=== PATIENT | male | born 1940 | race Caucasian/White ===

== ENCOUNTER 2018-08-05 13:25 | Outpatient (CLI) | payer OTHER ==
[2018-08-05] MEDS ORDERED: IOPAMIDOL-300 100 ML VIAL ONE (13:36)
[2018-08-05] MEDS ORDERED: IOPAMIDOL-300 100 ML VIAL IVP ONE (14:06)
--- NOTE | 2018-08-05 15:49 | CT Report ---
Reason: HEMATURIA,UTI SYMPTOMS Procedure Date: 08/05/2018 Accession Number: [id number] / [id number] Procedure: CT - Abdomen/Pelvis W/WO CPT Code: FULL RESULT: EXAM: CT ABDOMEN AND PELVIS WITHOUT AND WITH CONTRAST EXAM DATE: 08/05/2018 01:49 PM. HISTORY: HEMATURIA,UTI SYMPTOMS. COMPARISON: None. TECHNIQUE: Routine helical CT imaging was performed through the abdomen and pelvis before and after administration of IV contrast: ISOVUE 300 100mL. Enteric contrast: No. Reconstruction: Coronal and sagittal. In accordance with CT protocol optimization, one or more of the following dose reduction techniques were utilized for this exam: automated exposure control, adjustment of mA and/or KV based on patient size, or use of iterative reconstructive technique. FINDINGS: Lung Bases: Emphysematous changes. Bronchiectasis right posterior lung base. Liver: Fatty infiltration. Gallbladder/Bile Ducts: Gallstones. No biliary duct dilatation. Spleen: Normal. Pancreas: Normal. No masses or ductal obstruction. Adrenal Glands: Normal. Kidneys: No stones. Several 4 cm and smaller left renal cyst. No solid renal mass lesions. Normal ureters. Peritoneal Cavity/Bowel: Diverticula off the colon. No free fluid, free air or adenopathy. No masses or acute inflammatory process. Appendix not visualized, but no inflammatory changes adjacent to the cecum. Four large stones within the urinary bladder measuring 2.2 cm and smaller. Moderate symmetric wall thickening of the urinary bladder. No exophytic lesions within the urinary bladder. Prostate measures 4 cm in diameter. Normal rectum. No free fluid. Vasculature: No aneurysms or other significant abnormality. Bones: No significant abnormality. Other: None. IMPRESSION: 1. Chronic lung disease. 2. Cholelithiasis. 3. Several left renal cysts. 4. Colonic diverticulosis. 5. Several large urinary bladder stones. 6. Urinary bladder wall thickening, appearance favors urinary tract infection or chronic outlet obstruction. Bladder neoplasm not excluded. RADIA
== END 2018-08-05 13:26 | disposition home or self-care (01) ==
LOC: DI 13:25
PROVIDERS: ATTEND Internal Medicine
DX: N21.0 Calculus in bladder (principal); R31.9 Hematuria, unspecified; N28.1 Cyst of kidney, acquired; K80.20 Calculus of gallbladder without cholecystitis without obstruction; K57.30 Diverticulosis of large intestine without perforation or abscess without bleeding
CPT/HCPCS: 74178; Q9967

== ENCOUNTER 2022-02-17 19:21 | Outpatient (CLI) | payer MEDICARE, OTHER | END 2022-02-17 19:22 | disposition critical access hospital (66) | LOC: EMS 19:21 | DX: R41.0 Disorientation, unspecified (principal); R26.81 Unsteadiness on feet; V48.5XXA Car driver injured in noncollision transport accident in traffic accident, initial encounter; Y92.410 Unspecified street and highway as the place of occurrence of the external cause; Z72.89 Other problems related to lifestyle | CPT/HCPCS: A0425; A0429 ==

== ENCOUNTER 2022-02-17 19:57 | Emergency (ER) | payer MEDICARE, OTHER ==
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
[2022-02-17 20:19] LABS: BASOPHILS # (AUTO) 0.4 10^3/uL (0.0-0.1); BASOPHILS % (AUTO) 3.1 %; EOSINOPHILS # (AUTO) 0.9 10^3/uL (0.0-0.7); EOSINOPHILS % (AUTO) 7.3 %; HCT - HEMATOCRIT 40.7 % (42.0-52.0); HGB - HEMOGLOBIN 14.9 g/dL (14.0-18.0); LYMPHOCYTES # (AUTO) 2.3 10^3/uL (1.5-3.5); LYMPHOCYTES % (AUTO) 19.3 %; MEAN CORPUSCULAR HEMOGLOBIN 37.3 pg (27.0-31.0); MEAN CORPUSCULAR HGB CONC 36.6 g/dL (32.0-36.0); MEAN CORPUSCULAR VOLUME 101.8 fL (80.0-94.0); MEAN PLATELET VOLUME 9.3 fL (7.4-11.4); MONOCYTES # (AUTO) 1.2 10^3/uL (0.0-1.0); MONOCYTES % (AUTO) 9.7 %; NEUTROPHILS # (AUTO) 6.6 10^3/uL (1.5-6.6); NEUTROPHILS % (AUTO) 55.6 %; PLT - PLATELET COUNT 269 10^3/uL (130-450); RED CELL DISTRIBUTION WIDTH 16.6 % (12.0-15.0); WHITE BLOOD COUNT 11.8 x10^3/uL (4.8-10.8)
[2022-02-17 20:20] LABS: SLIDE REVIEW? Indicated
[2022-02-17 20:28] LABS: INR 1.1 (0.8-1.2)
[2022-02-17 20:32] LABS: ALBUMIN 3.8 g/dL (3.2-5.5); ALBUMIN/GLOBULIN RATIO 1.2 (1.0-2.2); BILIRUBIN,TOTAL 1.2 mg/dL (0.2-1.0); ETOH - ETHANOL 285.3 mg/dL; POTASSIUM 3.7 mmol/L (3.5-5.0); TOTAL PROTEIN 7.1 g/dL (6.7-8.2)
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
[2022-02-17 21:04] LABS: PLATELET ESTIMATE, MANUAL NORMAL (130-450,000) (NORMAL); PLATELET MORPHOLOGY NORMAL APPEARANCE (NORMAL); WBC MORPHOLOGY (MULTIPLE) NORMAL APPEARANCE (NORMAL)
[2022-02-17 21:05] LABS: DIFFERENTIAL COMMENT MANUAL=AUTO DIFF
[2022-02-17] MEDS ORDERED: LORazepam 2 MG/ML VIAL IVP STA (22:07)
[2022-02-17 23:01] VITALS: BP 122/108
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
== END 2022-02-18 09:21 | disposition home or self-care (01) ==
LOC: EDUNIT# → ED 19:57
DX: F10.921 Alcohol use, unspecified with intoxication delirium (principal); Y90.8 Blood alcohol level of 240 mg/100 ml or more; V48.0XXA Car driver injured in noncollision transport accident in nontraffic accident, initial encounter
CPT/HCPCS: 36415; 70450; 72125; 80053; 83690; 85025; 85610; 96374; 99281; 99284; G0480; J2060; 80320

== ENCOUNTER 2023-01-24 08:00 | Outpatient (CLI) | payer MEDICARE ==
[2023-01-24 14:21] LABS: BILIRUBIN,URINE NEGATIVE (NEGATIVE); CLARITY,URINE HAZY (CLEAR); GLUCOSE, URINE (UA) NEGATIVE (NEGATIVE); KETONES,URINE (UA) NEGATIVE (NEGATIVE); LEUKOCYTE ESTERASE, URINE MODERATE (NEGATIVE); NITRITE,URINE POSITIVE (NEGATIVE); OCCULT BLOOD,URINE SMALL (NEGATIVE); PH,URINE 5.5 PH (5.0-7.5); PROTEIN,URINE TRACE mg/dL (NEGATIVE); UROBILINOGEN,URINE 0.2 (NORMAL) E.U./dL (NORMAL)
[2023-01-24 14:37] LABS: BACTERIA,URINE Moderate /HPF (None Seen); RBC,URINE 0-5 /HPF (0-5); SQUAMOUS EPITHELIAL CELL,UR FEW Squamous (<= Few); WBC,URINE >25 /HPF (0-3)
== END 2023-01-24 23:59 | disposition home or self-care (01) ==
LOC: LAB.R 08:00
PROVIDERS: ATTEND Urology
DX: N30.01 Acute cystitis with hematuria (principal)
CPT/HCPCS: 81001; 81003; 87077; 87086; 87181

== ENCOUNTER 2024-02-25 17:52 | Emergency (ER) | payer MEDICARE ==
--- NOTE | 2024-02-25 19:38 | ED Physician Documentation ---
History of Present Illness - Stated complaint Stated Complaint: RT FOOT SWELLING/VOMIT - Chief complaint Chief Complaint: Ext Problem - Additonal information Additional information: 83-year-old with history of dementia, hypertension presents emergency department for atraumatic right foot pain. Patient is here with his daughter who is also his caregiver as well as his who also has dementia. Patient's daughter said that she went to check on her father yesterday and was noticing that he went to bed earlier than normal. Patient is complaining of right foot pain he attempted to elevate it and rested it but the swelling got worse now with no erythema. Unsure if there is been any fevers or chills at home no history of gout no history of cellulitis or type 2 diabetes. Patient denies any trauma to the foot PD PAST MEDICAL HISTORY - Past Medical History Past Medical History: Yes Cardiovascular: Hypertension Respiratory: None Neuro: Dementia Endocrine/Autoimmune: None GI: None : Benign prostate hypertrophy HEENT: None Psych: None Musculoskeletal: None Derm: None - Past Surgical History Past Surgical History: Yes General: Appendectomy - Present Medications Home Medications: Ambulatory Orders Medication Instructions Recorded Confirmed Indomethacin [Indocin] 50 mg PO TID 7 Days #42 cap 02/25/24 Tamsulosin [Flomax] 0.4 mg PO DAILY 02/25/24 02/25/24 cephALEXin [Keflex] 500 mg PO Q6H 5 Days #28 cap 02/25/24 - Allergies Allergies/Adverse Reactions: Allergies Allergy/AdvReac Type Severity Reaction Status Date / Time No Known Drug Allergies Allergy Verified 02/25/24 18:06 - Social History Does the pt smoke?: No Smoking Status: Never smoker Does the pt drink ETOH?: Yes ETOH Use: Beer Does the pt have substance abuse?: No - Immunizations Immunizations are current?: Yes Immunizations: TDAP >10years/unknown - POLST Patient has POLST: No PD ED PE NORMAL - Vitals Vital signs reviewed: Yes - General General: No acute distress, Well developed/nourished - Derm Derm: Other (right ankle erythema) - Extremities Extremities: No deformity, No calf tenderness / cord, Other (right ankle: No bony tenderness with palpation, right ankle erythema with edema. Tenderness with flexion extension, Achilles intact. Positive dorsalis pedis pulses.) Results - Vitals Vitals: Vital Signs - 24 hr 02/25/24 02/25/24 18:06 20:47 Temperature 37.1 C Heart Rate 110 H 110 H Respiratory 20 16 Rate Blood Pressure 110/77 124/91 H O2 Saturation 97 92 Oxygen O2 Source Room air - Labs Labs: Laboratory Tests 02/25/24 02/25/24 02/25/24 19:49 19:49 19:49 WBC 12.7 H RBC 4.30 L Hgb 14.6 Hct 42.8 MCV 99.5 H MCH 34.0 H MCHC 34.1 RDW 17.5 H Plt Count 203 MPV 8.7 Neut # (Auto) 9.7 H Lymph # (Auto) 1.0 L [place] # (Auto) 1.4 H Eos # (Auto) 0.1 Baso # (Auto) 0.2 H Absolute Nucleated RBC 0.00 Nucleated RBC % 0.0 ESR 15 Sodium 131 L Potassium 3.9 Chloride 99 L Carbon Dioxide 25 Anion Gap 7.0 BUN 12 Creatinine 1.1 Estimated GFR (MDRD) 64 L Glucose 111 H Uric Acid 8.6 H Calcium 9.2 Magnesium 1.6 L Total Bilirubin 1.5 H AST 14 ALT 10 Alkaline Phosphatase 49 C-Reactive Protein Total Protein 6.7 Albumin 3.8 Globulin 2.9 Albumin/Globulin Ratio 1.3 Lipase < 10 L 02/25/24 19:49 WBC RBC Hgb Hct MCV MCH MCHC RDW Plt Count MPV Neut # (Auto) Lymph # (Auto) [place] # (Auto) Eos # (Auto) Baso # (Auto) Absolute Nucleated RBC Nucleated RBC % ESR Sodium Potassium Chloride Carbon Dioxide Anion Gap BUN Creatinine Estimated GFR (MDRD) Glucose Uric Acid Calcium Magnesium Total Bilirubin AST ALT Alkaline Phosphatase C-Reactive Protein 9.0 H Total Protein Albumin Globulin Albumin/Globulin Ratio Lipase - Rads (name of study) Right lower extremity venous duplex Relevant Findings:: Final report received, EMP independent interpretation of test, Other (No DVT) PD Medical Decision Making - ED course ED course: 83-year-old male presents emergency department for atraumatic right lower extremity pain. Differentials include but are not limited to strain/sprain, DVT, Gout, Cellulitis. Given that patient does have dementia I did consider that there could have been trauma unknown or patient does not remember. I did consider x-rays of the right foot but with [place] rules patient does not meet criteria for an x-ray. Labs are complete he does have mild leukocytosis, 12.7 neutrophils elevated at 9.7. Mild hyponatremia, 131. Uric acid also slightly elevated Making me more suspicious that this could be a gout flare. CRP 9.0. Although I do believe that this is most likely a gout flare and is hard to say this is there is also a strong possibility that this could be cellulitis or even a combination of gout and cellulitis. We went ahead and started patient on Keflex for cellulitis as well as indomethacin for gout flare. Prescription sent to patient's preferred pharmacy he was given very strict return precautions as well as his daughter who is his caregiver his daughter will manage his medications at home they will follow-up with primary care provider outpatient and understand when to report back to the emergency department. Departure - Departure Disposition: Home, Self Care Clinical Impression: Cellulitis of right ankle Gout of right ankle Qualifiers: Gout etiology: unspecified cause Chronicity: acute Qualified Code(s): M10.9 - Gout, unspecified Instructions: Cellulitis Dc, Gout Eat Prevent, ED Diet Gout Prescriptions: Indomethacin [Indocin] 50 mg PO TID 7 Days #42 cap cephALEXin [Keflex] 500 mg PO Q6H 5 Days #28 cap Comments: Thank you for trusting us with your care we are going to treat your right ankle swelling and pain as if it is gout and cellulitis. We have started you on a medication called Keflex you will take this 4 times a day for the next 5 days you took the first dose tonight so you will take the next dose first thing in the morning. In regards to your gout I have included information in this packet of foods to avoid or to take to help with gout management. You will take a medication called indomethacin 3 times a day for this gout flare for the next 7 days. Is important that you follow-up with your primary care provider for follow-up in regards to this ER visit and reevaluation to make sure that you are getting better instead of worse. Please come back to the emergency department for any fevers chills worsening infection worsening swelling and pain Forms: PCP List Discharge Date/Time: 02/25/24 20:53
[2024-02-25 19:55] LABS: BASOPHILS # (AUTO) 0.2 10^3/uL (0.0-0.1); BASOPHILS % (AUTO) 1.4 %; EOSINOPHILS # (AUTO) 0.1 10^3/uL (0.0-0.7); EOSINOPHILS % (AUTO) 0.9 %; HCT - HEMATOCRIT 42.8 % (42.0-52.0); HGB - HEMOGLOBIN 14.6 g/dL (14.0-18.0); MEAN CORPUSCULAR HGB CONC 34.1 g/dL (32.0-36.0); MEAN CORPUSCULAR VOLUME 99.5 fL (80.0-94.0); MEAN PLATELET VOLUME 8.7 fL (7.4-11.4); MONOCYTES # (AUTO) 1.4 10^3/uL (0.0-1.0); MONOCYTES % (AUTO) 10.7 %; NEUTROPHILS # (AUTO) 9.7 10^3/uL (1.5-6.6); NEUTROPHILS % (AUTO) 75.7 %; PLT - PLATELET COUNT 203 10^3/uL (130-450); RED CELL DISTRIBUTION WIDTH 17.5 % (12.0-15.0); WHITE BLOOD COUNT 12.7 x10^3/uL (4.8-10.8)
[2024-02-25 20:02] LABS: MAGNESIUM 1.6 mg/dL (1.7-2.3)
[2024-02-25 20:09] LABS: ALBUMIN 3.8 g/dL (3.2-5.5); ALBUMIN/GLOBULIN RATIO 1.3 (1.0-2.2); ALKALINE PHOSPHATASE 49 IU/L (42-121); ALT ALANINE AMINOTRANSFERASE 10 IU/L (10-60); AST ASPARTATE AMINOTRANSFERASE 14 IU/L (10-42); BILIRUBIN,TOTAL 1.5 mg/dL (0.2-1.0); BUN - BLOOD UREA NITROGEN 12 mg/dL (6-20); CALCIUM 9.2 mg/dL (8.5-10.3); CARBON DIOXIDE - CO2 25 mmol/L (21-32); CHLORIDE 99 mmol/L (101-111); CREATININE 1.1 mg/dL (0.6-1.3); GFR - MDRD 64 (>89); GLUCOSE 111 mg/dL (74-104); POTASSIUM 3.9 mmol/L (3.5-4.5); SODIUM 131 mmol/L (135-145); TOTAL PROTEIN 6.7 g/dL (6.4-8.9); URIC ACID 8.6 mg/dL (4.4-7.6)
[2024-02-25 20:17] LABS: LIPASE < 10 U/L (11-82)
--- NOTE | 2024-02-25 20:17 | Ultrasound Report ---
PROCEDURE: Duplex Ext Veins Right INDICATIONS: RLE pain and swelling, r/o DVT TECHNIQUE: Real-time imaging, as well as color and pulse Doppler interrogation, were performed of the lower extr emity deep veins from the inguinal ligament to the popliteal fossa. Attempted visualization of the ca lf veins was performed. COMPARISON: None. FINDINGS: The deep veins are normally compressible, and free of intraluminal thrombus. Color and pu lse Doppler demonstrate normal phasic intraluminal flow. There is normal augmentation response to di stal compression maneuver. IMPRESSION: No deep venous thrombosis of the visualized lower extremity. Reviewed by: Rory Subramanian MD on 02/25/2024 8:16 PM PDT Approved by: Rory Subramanian MD on 02/25/2024 8:16 PM PDT Station ID: [id number]
[2024-02-25] MEDS ORDERED: INDOMETHACIN 25 MG CAPSULE PO STA (20:22)
[2024-02-25] MEDS: cephALEXin 250 MG CAPSULE PO STA (20:44)
[2024-02-25] MEDS: ACETAMINOPHEN 325 MG TABLET PO STA (20:44)
[2024-02-25] MEDS: oxyCODONE 5 MG TABLET PO STA (20:49)
[2024-02-25 20:53] VITALS: BP 124/91; O2SAT 92
== END 2024-02-25 20:53 | disposition home or self-care (01) ==
LOC: ED 17:52
DX: L03.115 Cellulitis of right lower limb (principal); M10.9 Gout, unspecified; D72.829 Elevated white blood cell count, unspecified; E87.1 Hypo-osmolality and hyponatremia; F03.90 Unspecified dementia, unspecified severity, without behavioral disturbance, psychotic disturbance, mood disturbance, and anxiety; I10 Essential (primary) hypertension; Z79.899 Other long term (current) drug therapy
CPT/HCPCS: 36415; 80053; 83690; 83735; 84550; 85025; 85651; 86140; 93971; 99284; A9270

== ENCOUNTER 2025-07-20 20:58 | Observation (INO) ==
--- OUTSIDE RECORDS SUMMARY | 2025-07-20 21:20 | EXTERNAL MEDICAL SUMMARY RPT | Continuity of Care Document ---
Author Organization [facility] Address [address] [place] [id number] Phone Problems date description facility 2025-04-27 15:23 Pain in right foot [facility] 2025-04-27 15:23 Other specified soft tissue dis [facility] 2025-05-05 07:02 Hereditary hemochromatosis [facility] 2025-05-05 07:02 Unspecified dementia , moderate, without behavioral disturbance, psychotic disturbance, mood disturbance, and anxiety [facility] 2025-05-05 07:02 Alcohol use, unspecified, uncom plicated [facility] 2025-05-05 07:02 Chronic gout, unspecified, with out tophus (tophi) [facility] 2025-05-05 07:02 Benign prostatic hyp erplasia with lower urinary tract symptoms [facility] 2025-05-05 07:02 [facility] 2025-05-05 15:10 Hereditary hemochromatosis [facility] 2025-05-05 15:10 Unspecified dementia , moderate, without behavioral disturbance, psychotic disturbance, mood disturbance, and anxiety [facility] 2025-05-05 15:10 Alcohol use, unspecified, uncom plicated [facility] 2025-05-05 15:10 Chronic gout, unspecified, with out tophus (tophi) [facility] 2025-05-05 15:10 Pain in right foot [facility] 2025-05-05 15:10 Other specified soft tissue dis orders [facility] 2025-05-05 15:10 Benign prostatic hyp erplasia with lower urinary tract symptoms [facility] 2025-05-05 15:10 Encounter for palliative care [facility] 2025-05-18 08:58 [facility] 2025-05-20 11:39 Pain in right foot [facility] 2025-05-20 11:39 Other specified soft tissue dis orders [facility] 2025-05-20 11:39 Encounter for palliative care [facility] Social History date description facility
[2025-07-20] MEDS: SODIUM CHLORIDE 0.9% 500 ML IV STA (21:39)
[2025-07-20] MEDS: PANTOPRAZOLE 40 MG VIAL IVP STA (21:39)
[2025-07-20 21:45] LABS: HCT - HEMATOCRIT 39.1 % (42.0-52.0); HGB - HEMOGLOBIN 13.4 g/dL (14.0-18.0); MEAN PLATELET VOLUME 10.0 fL (7.4-11.4); NRBC ABSOLUTE COUNT (AUTO) 0.02 x10^3/uL; NUCLEATED RED BLOOD CELLS AUTO 0.1 /100WBC; PLT - PLATELET COUNT 237 10^3/uL (130-450); RED CELL DISTRIBUTION WIDTH 18.0 % (12.0-15.0)
[2025-07-20 22:01] LABS: INR 1.2 (0.8-1.2); PT - PROTHROMBIN TIME 13.4 secs (9.9-12.6)
[2025-07-20 22:33] LABS: ALT ALANINE AMINOTRANSFERASE 15 IU/L (10-60); AST ASPARTATE AMINOTRANSFERASE 14 IU/L (10-42); BUN - BLOOD UREA NITROGEN 60 mg/dL (6-20); CARBON DIOXIDE - CO2 22 mmol/L (21-32); CREATININE 1.3 mg/dL (0.6-1.3); ETOH - ETHANOL < 10.0 mg/dL; GFR - MDRD 53 (>89)
--- NOTE | 2025-07-20 23:06 | CT Report ---
PROCEDURE: CT Abdomen/Pelvis W INDICATIONS: n/v/GIB CONTRAST: omni 300, 100ml TECHNIQUE: After the administration of intravenous contrast, a CT scan of the abdomen and pelvis was performed. Images were recorded and evaluated at appropriate window settings. Reformats: coronal and sagittal. For radiation dose reduction, the following was used: automated exposure control, adjustment of mA and/or kV according to patient size. COMPARISON: None. FINDINGS: Image quality: Diagnostic. Lower chest: Surgical bronchiectasis and linear scarring in the lung bases, likely sequela of prior infection/inflammation. Liver: Hepatic steatosis. No focal mass. Gallbladder: Layering stones/sludge. No wall thickening. No pericholecystic edema. Biliary tree: No intrahepatic or extrahepatic dilation, accounting for age. Spleen: No splenomegaly. Pancreas: No pancreatic ductal dilation. Adrenals: No adrenal nodule. Kidneys and ureters: No hydronephrosis. No renal cystic lesion which requires follow up. No solid mass. Stomach, bowel and peritoneum: No gastric or small bowel dilation. No abnormal wall thickening. No pathologic free fluid. Diverticulosis without evidence of diverticulitis. Nonvisualized appendix. No pericecal inflammation. Lymph nodes: No central or retroperitoneal adenopathy. Vessels: No infrarenal aortic aneurysm. Patent portal vein. PELVIS Reproductive organs: Unremarkable. Bladder: Circumferential bladder wall thickening which may be secondary to underdistention. Pelvic lymph nodes: No pelvic adenopathy by size criteria. Bones: No aggressive osseous abnormality. Other: No significant ventral or inguinal hernia. IMPRESSION: 1. Circumferential bladder wall thickening which may be secondary to underdistention. Correlate with symptoms and/or urinalysis to exclude cystitis. 2. Diverticulosis without evidence of diverticulitis. 3. Cholelithiasis without acute cholecystitis. Reviewed by: Trung Darnell MD on 07/20/2025 11:03 PM PDT Approved by: Trung Darnell MD on 07/20/2025 11:03 PM PDT Station ID: [id number]
--- NOTE | 2025-07-21 00:18 | ED Physician Documentation ---
PD HPI GI BLEED Stated complaint Stated Complaint: N/V/BLOODY STOOL Chief complaint Chief Complaint: Abd Pain Additional information Additional information: HPI from caregiver. Patient also contributes to HPI but answers are of uncertain reliability due to dementia. Caregiver says that patient was in his usual state of health when she left yesterday but upon checking in with patient this afternoon, she noted patient was vomiting "dark black" material. She then noted bloody vomitus on the floor with clots which patient indicated had happened at some point in the overnight period. This evening, the patient began to have frequent dark black tarry stool associate with increasing disorientation off of his baseline mild dementia as well as generalized weakness. Caregiver says that patient typically ambulates without needing any assistance but over the course of the evening, he has become increasingly weak to the point that he is unable to ambulate. Patient does not take any blood-thinning medication. No known history of GI bleeding. He does not take NSAIDs on a regular basis. He does use alcohol daily. The patient denies having any pain, specifically denies chest pain, abdominal pain. Meds/Allgy Home Medications Ambulatory Orders Medication Instructions Recorded Confirmed tamsulosin 0.4 mg capsule 0.4 mg PO DAILY 02/25/24 ibuprofen 200 mg tablet 200 mg PO Q6H PRN 02/06/25 0 02/06/25 Allergies Allergies Allergy/AdvReac Type Severity Reaction Status Date / Time No Known Drug Allergies Allergy Verified 07/20/25 21:14 PFSH Active Problems All Active Problems (Updated 07/21/25 @ 01:41 by Wang Hernandez MD) Acute upper GI bleed (Acute) Chronic coughing (Acute) Advance care planning (Acute) Dementia (Acute) Alcohol use disorder (Acute) Cognitive decline (Acute) Elevated PSA (Acute) BPH loc w urin obs/LUTS (Acute) Gout (Acute) Hereditary hemochromatosis (Acute) Medical History Medical History (Updated 07/21/25 @ 01:41 by Wang Hernandez MD) Hypertension Family History Family History Mother Cancer Social History Social History Smoking Status: Unknown if ever smoked Do you dip or chew tobacco?: No Do you vape?: No Living arrangement: At home Marital Status: Living Condition: With spouse/s.o. Support Person: Yes Physical Activity: Walking Level: Assisted Do you feel safe in your home environment?: Yes History of physical, verbal, emotional, or financial abuse?: No ETOH Use: Wine and Beer Frequency: Daily POLST Patient has POLST: Yes Exam Exam Vital Signs: Vital Signs x48h Pulse Resp BP Pulse Ox 07/21/25 01:00 90 18 100/60 99 07/20/25 23:00 88 16 99/75 97 07/20/25 21:45 110 H 18 90/60 99 07/20/25 21:30 112 H 16 112/71 98 Constitutional normal general appearance, no apparent distress and alert Respiratory breath sounds equal bilaterally, clear to auscultation bilaterally, no wheezes and no rales Cardiovascular normal heart rate noted, regular rhythm noted and no edema Gastrointestinal abdomen soft to palpation, nontender to palpation, nondistended and normoactive bowel sounds Neurology GCS 15 Psychiatry mental status grossly normal, cooperative and affect normal Skin skin color normal Results Vitals Vitals: Vital Signs - 24 hr 07/20/25 21:01 07/20/25 21:30 07/20/25 21:45 Temperature 36.4 C L Temperature Source Skin Pulse Rate 118 H 112 H 110 H Respiratory Rate 18 16 18 Blood Pressure 91/68 112/71 90/60 O2 Saturation 99 98 99 O2 Source Room air Room air Room air Pain Intensity 6 07/20/25 23:00 07/21/25 01:00 Temperature Temperature Source Pulse Rate 88 90 Respiratory Rate 16 18 Blood Pressure 99/75 100/60 O2 Saturation 97 99 O2 Source Room air Room air Pain Intensity Oxygen O2 Source Room air Labs Labs: Microbiology 07/20/25 21:55 Occult Blood - Final Stool Laboratory Tests 07/20/25 07/21/25 21:41 00:50 WBC 15.2 H RBC 3.72 L Hgb 13.4 L 12.6 L Hct 39.1 L 37.7 L MCV 105.1 H MCH 36.0 H MCHC 34.3 RDW 18.0 H Plt Count 237 MPV 10.0 Neut # (Auto) 12.7 H Lymph # (Auto) 1.1 L [place] # (Auto) 0.9 Eos # (Auto) 0.0 Baso # (Auto) 0.1 Absolute Nucleated RBC 0.02 Nucleated RBC % 0.1 PT 13.4 H INR 1.2 APTT 24.0 L Sodium 137 Potassium 3.6 Chloride 102 Carbon Dioxide 22 Anion Gap 13.0 BUN 60 H Creatinine 1.3 Estimated GFR (MDRD) 53 L Glucose 151 H Calcium 9.1 Total Bilirubin 1.9 H AST 14 ALT 15 Alkaline Phosphatase 45 Total Protein 6.6 Albumin 4.0 Globulin 2.6 Albumin/Globulin Ratio 1.5 Lipase < 10 L Ethyl Alcohol < 10.0 PD Medical Decision Making ED course Complexity details: reviewed results, re-evaluated patient, considered differential and d/w patient ED course: Mild leukocytosis on CBC (WBC 15.2). Hemoglobin is slightly below normal range (13.4), and a 3-hour repeat hemoglobin is 12.6. However, patient had black tarry stool output late in ED stay concerning for ongoing UGI bleed. Also notable is BUN of 60 with creatinine 1.3. Normal LFTs and lipase except for 1.9 bilirubin. Stool sent to lab and result is guaiac positive. CT A/P with IV contrast demonstrates diverticulosis, cholelithiasis. I discussed this case with [facility] who accepts patient to [facility] hospitalist service for observation and possible endoscopy. Patient was given 500 cc normal saline IV during ED stay along with 40 mg IV pantoprazole. Discharge Plan Discharge Patient Disposition: [facility] DC/Xfer Condition: Stable Clinical Impression: Acute upper GI bleed Interventions: ED Admission Assessment Last Done: 07/21/25 02:44 Vitals documented within 30 minutes of discharge?: Yes
[2025-07-21 00:53] LABS: HCT - HEMATOCRIT 37.7 % (42.0-52.0); HGB - HEMOGLOBIN 12.6 g/dL (14.0-18.0)
--- NOTE | 2025-07-21 02:02 | HISTORY & PHYSICAL EXAMINATION ---
Chief Complaint Chief Complaint Chief Complaint: Bloody stool and bloody emesis History of Present Illness History Obtained From History obtained from: My discussion with ER MD who spoke with Patient's caregiver María Exam Limitations: Cognitive decline and mild dementia, forgetfulness, telemedicine visit History of Present Illness HPI Comment/Other: patient is 84 y/o M with prior hx of gout and dementia (mild) described by Caregiver María (with whom Dr Hernandez spoke earlier) patient has ongoing episode of dark coffee ground emesis and melanotic stools , black in color , 3-4 times in last 2 days, patient denies being on any blood thinner as per behavioral health care coordinator's history, patient has profound weakness along with intermittent melanotic stool and in ER patient had 100 ml of melanotic stool. Although patient has stable hemoglobin. I was told by ER MD surgery consultants can do EGD and colonoscopy if needed at this facility hospitalist team is asked to admit patient. patient is very poor historian due to dementia Meds/Allgy Home Medications Ambulatory Orders Medication Instructions Recorded Confirmed tamsulosin 0.4 mg capsule 0.4 mg PO DAILY 02/25/24 ibuprofen 200 mg tablet 200 mg PO Q6H PRN 02/06/25 0 02/06/25 Allergies Allergies Allergy/AdvReac Type Severity Reaction Status Date / Time No Known Drug Allergies Allergy Verified 07/20/25 21:14 PFSH Active Problems All Active Problems (Updated 07/21/25 @ 01:41 by Wang Hernandez MD) Acute upper GI bleed (Acute) Chronic coughing (Acute) Advance care planning (Acute) Dementia (Acute) Alcohol use disorder (Acute) Cognitive decline (Acute) Elevated PSA (Acute) BPH loc w urin obs/LUTS (Acute) Gout (Acute) Hereditary hemochromatosis (Acute) Medical History Medical History (Updated 07/21/25 @ 01:41 by Wang Hernandez MD) Hypertension Family History Family History Mother Cancer Social History Social History Do you vape?: No Living arrangement: At home Marital Status: Living Condition: With spouse/s.o. Support Person: Yes Physical Activity: Walking Level: Assisted Do you feel safe in your home environment?: Yes History of physical, verbal, emotional, or financial abuse?: No ETOH Use: Wine and Beer Frequency: Daily POLST Patient has POLST: Yes Review of Systems Status of ROS: unobtainable due to medical condition Exam Exam Vital Signs: Vital Signs x48h Temp Pulse Resp BP Pulse Ox 07/20/25 23:00 88 16 99/75 97 07/20/25 21:45 110 H 18 90/60 99 07/20/25 21:30 112 H 16 112/71 98 07/20/25 21:01 36.4 C L 118 H 18 91/68 99 Limited inspection on telemedicine visit, exam is limited by telemedicine nature of patient care encounter, patient appears non focal , moves all extremities, and forgetful, RN Lilian is at bedside, for exam defer to ER MD exam Conclusion/Plan Problem List (1) Acute upper GI bleed: (2) Dementia: Qualifiers: Dementia type: unspecified type Dementia severity: moderate Dementia behavioral or psychological symptom: without behavioral, psychotic, or mood disturbance or anxiety Qualified Code(s): F03.B0 - Unspecified dementia, moderate, without behavioral disturbance, psychotic disturbance, mood disturbance, and anxiety Plan - Admit to hospital - Rounding team to discuss with general surgery Dr Lam in AM for possible EGD evaluation - Start protonix infusion - Keep patient NPO - Continue IVF - Monitor Serial CBC Q6H - avoid any blood thinners - Patient drinks 1/2 glass of whiskey daily, monitor for withdrawal - If need any clinical info, rounding team to discuss with caregiver María. - no one at bedside, patient appears confused, full code status - Monitor for delirium Lab Results 07/21/25 00:50 07/20/25 21:41
[2025-07-21] MEDS ORDERED: ONDANSETRON 4 MG/2 ML VIAL IVP PRN (02:39)
[2025-07-21] MEDS ORDERED: SODIUM CHLORIDE FLUSH 0.9% 10 ML SYRINGE IVP PRN (02:39)
[2025-07-21 03:01] LABS: HCT - HEMATOCRIT 36.7 % (42.0-52.0); HGB - HEMOGLOBIN 12.5 g/dL (14.0-18.0); MEAN PLATELET VOLUME 9.6 fL (7.4-11.4); NRBC ABSOLUTE COUNT (AUTO) 0.00 x10^3/uL; NUCLEATED RED BLOOD CELLS AUTO 0.0 /100WBC; PLT - PLATELET COUNT 201 10^3/uL (130-450); RED CELL DISTRIBUTION WIDTH 18.3 % (12.0-15.0)
[2025-07-21 03:12] LABS: INR 1.2 (0.8-1.2); PT - PROTHROMBIN TIME 13.2 secs (9.9-12.6)
[2025-07-21] MEDS: SODIUM CHLORIDE 0.9% 1,000 ML IV SCH (03:26)
[2025-07-21] MEDS: PANTOPRAZOLE 80 MG in SODIUM CHLORIDE 0.9% 100ML 100 ML IV SCH (03:27)
--- NOTE | 2025-07-21 06:12 | CONSULTATION NOTE ---
Referring Provider Name of Referring Provider:: Dr. Fox Consult Date: 07/21/25 Chief Complaint Chief Complaint Chief Complaint: Coffe ground emesis, melena History of Present Illness History Obtained From History obtained from: Chart - patient has dementia and is poor historian History of Present Illness HPI Comment/Other: 84 year old male found at home by Palliative caregiver with coffee ground emesis, melena, and weakness. He was brought to the ED and admitted to the medical service for evaluation and management. General Surgery was consulted for possible EGD and or CS. PFSH Active Problems All Active Problems Acute upper GI bleed (Acute) Chronic coughing (Acute) Advance care planning (Acute) Dementia (Acute) Alcohol use disorder (Acute) Cognitive decline (Acute) Elevated PSA (Acute) BPH loc w urin obs/LUTS (Acute) Gout (Acute) Hereditary hemochromatosis (Acute) Medical History Medical History Hypertension Family History Family History Mother Cancer Social History Social History Smoking Status: Unknown if ever smoked Do you dip or chew tobacco?: No Do you vape?: No Living arrangement: At home Marital Status: Living Condition: With spouse/s.o. Support Person: Yes Physical Activity: Walking Level: Assisted Do you feel safe in your home environment?: Yes History of physical, verbal, emotional, or financial abuse?: No ETOH Use: Wine and Beer Frequency: Daily POLST Patient has POLST: Yes Meds/Allgy Home Medications Ambulatory Orders Medication Instructions Recorded Confirmed tamsulosin 0.4 mg capsule 0.4 mg PO DAILY 02/25/24 ibuprofen 200 mg tablet 200 mg PO Q6H PRN 02/06/25 0 02/06/25 Allergies Allergies Allergy/AdvReac Type Severity Reaction Status Date / Time No Known Drug Allergies Allergy Verified 07/20/25 21:14 Results Lab Results 07/21/25 02:55 07/20/25 21:41 Other Lab Results: Lab Results x24hrs 10/06/0707/21/25 07/20/25 Range/Units 02:55 00:50 21:41 WBC 14.5 H 15.2 H (4.8-10.8) x10^3/uL RBC 3.46 L 3.72 L (4.70-6.10) 10^6/uL Hgb 12.5 L 12.6 L 13.4 L (14.0-18.0) g/dL Hct 36.7 L 37.7 L 39.1 L (42.0-52.0) % MCV 106.1 H 105.1 H (80.0-94.0) fL MCH 36.1 H 36.0 H (27.0-31.0) pg MCHC 34.1 34.3 (32.0-36.0) g/dL RDW 18.3 H 18.0 H (12.0-15.0) % Plt Count 201 237 (130-450) 10^3/uL MPV 9.6 10.0 (7.4-11.4) fL Neut # (Auto) 11.5 H 12.7 H (1.5-6.6) 10^3/uL Lymph # (Auto) 1.6 1.1 L (1.5-3.5) 10^3/uL [place] # (Auto) 1.0 0.9 (0.0-1.0) 10^3/uL Eos # (Auto) 0.0 0.0 (0.0-0.7) 10^3/uL Baso # (Auto) 0.1 0.1 (0.0-0.1) 10^3/uL Absolute Nucleated RBC 0.00 0.02 x10^3/uL Nucleated RBC % 0.0 0.1 /100WBC PT 13.2 H 13.4 H (9.9-12.6) secs INR 1.2 1.2 (0.8-1.2) APTT 24.4 L 24.0 L (24.9-33.3) secs Sodium 137 (135-145) mmol/L Potassium 3.6 (3.5-4.5) mmol/L Chloride 102 (101-111) mmol/L Carbon Dioxide 22 (21-32) mmol/L Anion Gap 13.0 (6-13) BUN 60 H (6-20) mg/dL Creatinine 1.3 (0.6-1.3) mg/dL Estimated GFR (MDRD) 53 L (>89) Glucose 151 H (74-104) mg/dL Calcium 9.1 (8.5-10.3) mg/dL Total Bilirubin 1.9 H (0.2-1.0) mg/dL AST 14 (10-42) IU/L ALT 15 (10-60) IU/L Alkaline Phosphatase 45 (42-121) IU/L Total Protein 6.6 (6.4-8.9) g/dL Albumin 4.0 (3.2-5.5) g/dL Globulin 2.6 (2.1-4.2) g/dL Albumin/Globulin Ratio 1.5 (1.0-2.2) Lipase < 10 L (11-82) U/L Ethyl Alcohol < 10.0 mg/dL Review of Systems Coffee ground emesis; melena; No abdominal pain Exam Exam Vital Signs: Vital Signs x48h Temp Pulse Pulse Resp BP BP Pulse Ox 07/21/25 02:42 36.6 C 98 18 118/80 98 07/21/25 01:00 90 18 100/60 99 07/20/25 23:00 88 16 99/75 97 Constitutional no apparent distress HENMT normocephalic, hearing grossly normal bilaterally and oral mucous membranes normal Eyes PERRL and conjunctivae normal Neck/C-Spine trachea midline Respiratory breath sounds equal bilaterally Cardiovascular normal heart rate noted and regular rhythm noted Gastrointestinal abdomen normal to inspection, abdomen soft to palpation and nontender to palpation Extremities normal to inspection Psychiatry cooperative Disoriented to place Skin no ecchymosis noted, no jaundice and no mottling Conclusion/Plan Problem List (1) Acute upper GI bleed: Plan: The patient is hemodynamically stable and has not required blood transfusion. He is on IV PPI. His Hgb has decreased to 12.5 from a usual level of 14. (2) Dementia: Qualifiers: Dementia behavioral or psychological symptom: without behavioral, psychotic, or mood disturbance or anxiety Dementia severity: moderate Dementia type: unspecified type Qualified Code(s): F03.B0 - Unspecified dementia, moderate, without behavioral disturbance, psychotic disturbance, mood disturbance, and anxiety Plan I will discuss with the medical hospitalist team. I am not certain how aggressive they want to be given his palliative care situation and current hemodynamic stability. If we are to offer urgent diagnostic endoscopy, I would recommend we start with an EGD. If no bleeding source is identified, we can then decide whether to pursue colonoscopy. Lab Results 07/21/25 02:55 07/20/25 21:41
[2025-07-21] MEDS: PANTOPRAZOLE 40 MG VIAL IVP SCH (08:41)
[2025-07-21 08:42] LABS: ALT ALANINE AMINOTRANSFERASE 11.0 IU/L (10-60); AST ASPARTATE AMINOTRANSFERASE 10.0 IU/L (10-42); BUN - BLOOD UREA NITROGEN 54.0 mg/dL (6-20); CARBON DIOXIDE - CO2 28.0 mmol/L (21-32); CREATININE 1.2 mg/dL (0.6-1.3); GFR - MDRD 58.0 (>89)
[2025-07-21] MEDS: SODIUM CHLORIDE FLUSH 0.9% 10 ML SYRINGE IVP SCH (08:42)
--- NOTE | 2025-07-21 10:04 | PROVIDER PROGRESS NOTE ---
Progress Note Progress Note Progress Note: Consent: EGD The Medical Hospitalist Service would like an EGD performed on this patient today. He remains hemodynamically stable. His legal guardian is his son, Vladimir who makes all of his health care decisions. Vladiimr has been counseled for the procedure (EGD) for his father, it's indications, risks, benefits and expected outcome as well as alternative therapies. We specifically discussed risks associated with anesthesia and insertion of the endoscope into the UGI tract which includes bleeding which may require surgical intervention. Vladimir understands, agrees, and consents to the proposed operative strategy and requests that we proceed with the procedure as outlined in our discussion. I will call Vladimir after the procedure. If we do not find an UGI source for the GI bleed loss, we will discuss possible colonoscopy. This phone consent was witnessed by one of our nursing staff. Vladimir [phone] Anthony Lobato MD, [facility] General Surgery Service
--- NOTE | 2025-07-21 11:09 | PROVIDER PROGRESS NOTE ---
Subjective Prog Note Date Prog Note Date: 07/21/25 Prog Note Time: 11:09 Subjective Pt reports feeling: No change Subjective: Calvin Leon is a 84-year-old male with a past medical history of ETOH use, dementia, hemochromatosis and gout who presents with hematemesis and melena concerning for upper GIB with plans for EGD 07/21. Today, patient is alert and engages in assessment/conversation. He states he had a few days of black-colored emesis with melena, he recalls last before admission 07/20. Currently denies abdominal pain, nausea, and dizziness at rest. He denies dyspnea, chest pain, palpitations. Current Medications Current Medications Current Medications: Current Medications Generic Name Dose Route Start Last Admin Trade Name Freq PRN Reason Stop Dose Admin Sodium Chloride 1,000 mls @ 100 mls/hr 07/21/25 02:39 07/21/25 03:26 Normal Saline 0.9% IV 100 mls/hr .Q10H LEOBARDO Administration Ondansetron HCl 4 mg 07/21/25 02:39 Ondansetron 4 Mg/2 Ml Vial IVP Q6HR PRN Nausea / Vomiting Pantoprazole Sodium 40 mg 07/21/25 09:00 07/21/25 08:41 Pantoprazole 40 Mg Vial IVP 40 mg BID LEOBARDO Administration Sodium Chloride 10 ml 07/21/25 02:39 Sodium Chloride Flush 0.9% 10 Ml Syringe IVP PRN PRN NEEDED PER PROVIDER ORDERS Sodium Chloride 10 ml 07/21/25 09:00 07/21/25 08:42 Sodium Chloride Flush 0.9% 10 Ml Syringe IVP 10 ml 0100,0900,1700 LEOBARDO Administration Objective Vital Signs/Intake & Output Reviewed Vital Signs: Yes Vital Signs: Vital Signs x48h Temp Pulse Resp BP Pulse Ox 07/21/25 09:00 36.7 C 78 18 100/70 97 Intake & Output: Intake & Output 07/18/25 07/19/25 07/20/25 07/21/25 23:59 23:59 23:59 23:59 Intake Total 500 / 500 Output Total 100 / 100 Balance 500 / 500 -100 / -100 Weight (kg) 72.575 kg 88 kg Objective General Appearance: positive No acute distress and Alert Eyes Bilateral: positive PERRL, EOMI, Conjunctivae nml and No scleral icterus; negative Normal inspection (Crusty yellow drainage bilateral lower eyelids) ENT: positive Dry mucous membranes and Other (Dental caries) Neck: positive Nml inspection, No JVD and Trachea midline Respiratory: positive No respiratory distress and Breath sounds nml; negative Wheezes, Rales or Rhonchi Cardiovascular: positive Regular rate & rhythm, No murmur and No gallop Peripheral Pulses: 1+: Dorsalis pedis (R) and 1+: Dorsalis pedis (L) and 2+: Radial (R), 2+: Radial (L), 2+: Posterior tibialis (R) and 2+: Posterior tibialis (L) Abdomen: positive Non-tender, Nml bowel sounds and No distention Skin: positive No rash, Warm, Dry and Other (Solar lentigines generalized BUE/trunk) Extremities: positive Non-tender, Full ROM and Pedal edema (2+ in ankles) Neurologic/Psychiatric: positive Motor nml, Sensation nml, Mood/affect nml, Disoriented to time and Other (Initially states he is admitted for UTI, however recalls hematemesis and melena); negative Slurred/abnml speech Lab Results 07/21/25 14:10 07/21/25 08:14 Other Labs: Lab Results x24hrs 07/21/25 07/21/25 07/21/25 Range/Units 08:14 02:55 00:50 WBC 14.5 H (4.8-10.8) x10^3/uL RBC 3.46 L (4.70-6.10) 10^6/uL Hgb 12.5 L 12.6 L (14.0-18.0) g/dL Hct 36.7 L 37.7 L (42.0-52.0) % MCV 106.1 H (80.0-94.0) fL MCH 36.1 H (27.0-31.0) pg MCHC 34.1 (32.0-36.0) g/dL RDW 18.3 H (12.0-15.0) % Plt Count 201 (130-450) 10^3/uL MPV 9.6 (7.4-11.4) fL Neut # (Auto) 11.5 H (1.5-6.6) 10^3/uL Lymph # (Auto) 1.6 (1.5-3.5) 10^3/uL [place] # (Auto) 1.0 (0.0-1.0) 10^3/uL Eos # (Auto) 0.0 (0.0-0.7) 10^3/uL Baso # (Auto) 0.1 (0.0-0.1) 10^3/uL Absolute Nucleated RBC 0.00 x10^3/uL Nucleated RBC % 0.0 /100WBC PT 13.2 H (9.9-12.6) secs INR 1.2 (0.8-1.2) APTT 24.4 L (24.9-33.3) secs Sodium 141 (135-145) mmol/L Potassium 3.6 (3.5-4.5) mmol/L Chloride 107 (101-111) mmol/L Carbon Dioxide 28 (21-32) mmol/L Anion Gap 6.0 (6-13) BUN 54 H (6-20) mg/dL Creatinine 1.2 (0.6-1.3) mg/dL Estimated GFR (MDRD) 58 L (>89) Glucose 102 (74-104) mg/dL Calcium 8.4 L (8.5-10.3) mg/dL Total Bilirubin 1.2 H (0.2-1.0) mg/dL AST 10 (10-42) IU/L ALT 11 (10-60) IU/L Alkaline Phosphatase 35 L (42-121) IU/L Total Protein 5.2 L (6.4-8.9) g/dL Albumin 3.2 (3.2-5.5) g/dL Globulin 2.0 L (2.1-4.2) g/dL Albumin/Globulin Ratio 1.6 (1.0-2.2) Lipase (11-82) U/L Ethyl Alcohol mg/dL 07/20/25 Range/Units 21:41 WBC 15.2 H (4.8-10.8) x10^3/uL RBC 3.72 L (4.70-6.10) 10^6/uL Hgb 13.4 L (14.0-18.0) g/dL Hct 39.1 L (42.0-52.0) % MCV 105.1 H (80.0-94.0) fL MCH 36.0 H (27.0-31.0) pg MCHC 34.3 (32.0-36.0) g/dL RDW 18.0 H (12.0-15.0) % Plt Count 237 (130-450) 10^3/uL MPV 10.0 (7.4-11.4) fL Neut # (Auto) 12.7 H (1.5-6.6) 10^3/uL Lymph # (Auto) 1.1 L (1.5-3.5) 10^3/uL [place] # (Auto) 0.9 (0.0-1.0) 10^3/uL Eos # (Auto) 0.0 (0.0-0.7) 10^3/uL Baso # (Auto) 0.1 (0.0-0.1) 10^3/uL Absolute Nucleated RBC 0.02 x10^3/uL Nucleated RBC % 0.1 /100WBC PT 13.4 H (9.9-12.6) secs INR 1.2 (0.8-1.2) APTT 24.0 L (24.9-33.3) secs Sodium 137 (135-145) mmol/L Potassium 3.6 (3.5-4.5) mmol/L Chloride 102 (101-111) mmol/L Carbon Dioxide 22 (21-32) mmol/L Anion Gap 13.0 (6-13) BUN 60 H (6-20) mg/dL Creatinine 1.3 (0.6-1.3) mg/dL Estimated GFR (MDRD) 53 L (>89) Glucose 151 H (74-104) mg/dL Calcium 9.1 (8.5-10.3) mg/dL Total Bilirubin 1.9 H (0.2-1.0) mg/dL AST 14 (10-42) IU/L ALT 15 (10-60) IU/L Alkaline Phosphatase 45 (42-121) IU/L Total Protein 6.6 (6.4-8.9) g/dL Albumin 4.0 (3.2-5.5) g/dL Globulin 2.6 (2.1-4.2) g/dL Albumin/Globulin Ratio 1.5 (1.0-2.2) Lipase < 10 L (11-82) U/L Ethyl Alcohol < 10.0 mg/dL Diagnostic Imaging Diagnostic Imaging Results: positive Final report reviewed Assessment/Plan Problem List (1) Acute upper GI bleed: Impression: Patient presents with a few days of hematemesis and melena concerning for upper GIB. His H&H is slightly downtrending from Hgb 13.4 to 12.5 and [address] 39[address] abdomen was unremarkable. Hemoccult from 07/20 is negative. His age, ETOH use, and history of hemochromatosis places him at increased risk for gastritis and variceal bleeding. - Patient is being followed by palliative care; spoke with son who believes further workup of patient's bleeding aligns with care, will proceed with EGD today - Trend H&H - Monitor for signs/symptoms of further bleeding (pallor, tachycardia, hypotension, further hematemesis/melena) - Acid suppression with PPI: Scheduled Pantoprazole 40mg IVP - Continue IVF since NPO at this time: NS 100 cc/hr - NPO for EGD - Holding blood transfusion for now given clinically stable (H&H with mild downtrend and VSS, asymptomatic) (2) Alcohol use disorder: Impression: Patient states he consumes alcohol on a nightly basis with varying quantities, he reports anywhere from one glass of wine to one cup of whiskey. BAL < 10. He denies ever experiencing withdrawals from alcohol, however I am concerned given extent of his alcohol consumption and mild tremors on physical exam. - Initiate [facility] protocol - Holding vitamin supplementation at this time since NPO; plan to start folic acid and thiamine once tolerating diet - Encourage safe consumption or abstinence from alcohol (3) Dementia: Impression: Patient has a history of dementia. On my assessment he is responding to questions appropriately and follows all commands. He is being followed by palliative care. - Delirium precautions Qualifiers: Dementia behavioral or psychological symptom: without behavioral, psychotic, or mood disturbance or anxiety Dementia severity: moderate Dementia type: unspecified type Qualified Code(s): F03.B0 - Unspecified dementia, moderate, without behavioral disturbance, psychotic disturbance, mood disturbance, and anxiety (4) Hereditary hemochromatosis: Impression: Noted in history, son states that he is no longer undergoing regular phlebotomy.
--- NOTE | 2025-07-21 13:46 | ANESTHESIA PROCEDURE NOTE ---
Pre-Anesthesia VS, & Labs Diagnosis Surgical Diagnosis:: Anemia Procedure Procedure: EGD Vitals Vital Signs: Temp Pulse Resp BP Pulse Ox 36.7 C 78 18 100/70 97 07/21/25 09:00 07/21/25 09:00 07/21/25 09:00 07/21/25 09:00 07/21/25 09:00 NPO NPO: >8 hours Lab Results Current Lab Results: Laboratory Tests 07/21/25 11:51: Blood Type O POSITIVE, Antibody Screen NEGATIVE 07/21/25 08:14: Sodium 141, Potassium 3.6, Chloride 107, Carbon Dioxide 28, Anion Gap 6.0, BUN 54 H, Creatinine 1.2, Estimated GFR (MDRD) 58 L, Glucose 102, Calcium 8.4 L, Total Bilirubin 1.2 H, AST 10, ALT 11, Alkaline Phosphatase 35 L, Total Protein 5.2 L, Albumin 3.2, Globulin 2.0 L, Albumin/Globulin Ratio 1.6, Blood Type Recheck O POSITIVE 07/21/25 02:55: WBC 14.5 H, RBC 3.46 L, Hgb 12.5 L, Hct 36.7 L, MCV 106.1 H, MCH 36.1 H, MCHC 34.1, RDW 18.3 H, Plt Count 201, MPV 9.6, Neut # (Auto) 11.5 H, Lymph # (Auto) 1.6, [place] # (Auto) 1.0, Eos # (Auto) 0.0, Baso # (Auto) 0.1, Absolute Nucleated RBC 0.00, Nucleated RBC % 0.0, PT 13.2 H, INR 1.2, APTT 24.4 L 07/21/25 00:50: Hgb 12.6 L, Hct 37.7 L 07/20/25 21:41: WBC 15.2 H, RBC 3.72 L, Hgb 13.4 L, Hct 39.1 L, MCV 105.1 H, MCH 36.0 H, MCHC 34.3, RDW 18.0 H, Plt Count 237, MPV 10.0, Neut # (Auto) 12.7 H, L ymph # (Auto) 1.1 L, [place] # (Auto) 0.9, Eos # (Auto) 0.0, Baso # (Auto) 0.1, Absolute Nucleated RBC 0.02, Nucleated RBC % 0.1, PT 13.4 H, INR 1.2, APTT 24.0 L, Sodium 137, Potassium 3.6, Chloride 102, Carbon Dioxide 22, Anion Gap 13.0, B UN 60 H, Creatinine 1.3, Estimated GFR (MDRD) 53 L, Glucose 151 H, Calcium 9.1, Total Bilirubin 1.9 H, AST 14, ALT 15, Alkaline Phosphatase 45, Total Protein 6.6, Albumin 4.0, Globulin 2.6, Albumin/Globulin Ratio 1.5, Lipase < 10 L, Ethyl Alcohol < 10.0 Lab results reviewed: Yes 07/21/25 02:55 07/21/25 08:14 Meds/Allgy Home Medications Ambulatory Orders Medication Instructions Recorded Confirmed tamsulosin 0.4 mg capsule 0.4 mg PO DAILY 02/25/24 ibuprofen 200 mg tablet 200 mg PO Q6H PRN 02/06/25 0 02/06/25 Allergies Allergies Allergy/AdvReac Type Severity Reaction Status Date / Time No Known Drug Allergies Allergy Verified 07/20/25 21:14 PFSH Active Problems All Active Problems Acute upper GI bleed (Acute) Chronic coughing (Acute) Advance care planning (Acute) Dementia (Acute) Alcohol use disorder (Acute) Cognitive decline (Acute) Elevated PSA (Acute) BPH loc w urin obs/LUTS (Acute) Gout (Acute) Hereditary hemochromatosis (Acute) Medical History Medical History Hypertension Family History Family History Mother Cancer Social History Social History Smoking Status: Unknown if ever smoked Do you dip or chew tobacco?: No Do you vape?: No Living arrangement: At home Marital Status: Living Condition: With spouse/s.o. Support Person: Yes Physical Activity: Walking Level: Assisted Do you feel safe in your home environment?: Yes History of physical, verbal, emotional, or financial abuse?: No ETOH Use: Wine and Beer Frequency: Daily POLST Patient has POLST: Yes POLST on file?: Yes POLST CPR Status: Do Not Attempt Resuscitation (DNAR) / Allow Natural Anesthesia Exam (Expanded) Exam General: Alert, Oriented x3 and Cooperative Dental: WNL Mouth Openin Fingerbreadth Neck Mobility: Reduced Mallampati classification: III Thyromental Distance: 4-6 cm Exam Exam Vital Signs: Vital Signs x48h Temp Pulse Resp BP Pulse Ox 07/21/25 09:00 36.7 C 78 18 100/70 97 Plan Plan Anesthesia Type: General and Total IV Consent for Procedure(s) Verified and Reviewed: Yes Code Status: Attempt Resuscitation ASA Classification ASA classification: 3-Severe systemic disease Is this case an emergency?: No
[2025-07-21 14:18] LABS: HCT - HEMATOCRIT 37.4 % (42.0-52.0); HGB - HEMOGLOBIN 12.7 g/dL (14.0-18.0)
--- NOTE | 2025-07-21 14:27 | PROVIDER PROGRESS NOTE ---
Progress Note Progress Note Progress Note: General Surgery Brief Procedure Note (see "Provation" for details) Preop Diagnosis: Postop Diagnosis: Procedure: Recommendation: 1) Anthony Lobato MD, FACS General Surgery Service
[2025-07-21] MEDS ORDERED: PROPOFOL 200 MG/20 ML VIAL IVP ONE (14:41)
[2025-07-21] MEDS ORDERED: LIDOCAINE-PF 2% 10 ML AMP SUBQ ONE (14:41)
--- NOTE | 2025-07-21 14:49 | PHARMACY PROGRESS NOTE ---
Best Possible Medication History Admit Date and Time: 07/21/25 0143 Home Medications Medication Instructions Recorded Confirmed Type No Known Home Medications 07/21/2506/07 History Processed by: Pharmacy Medications reviewed in ED?: No Medication History completed: Yes Patient Interview: Completed Secondary Source(s): Insurance records [facility] Statement: As the person ultimately responsible for medication therapy, providers are able to order a medication from an existing home medication list in [facility] via the "Reconcile Routine" prior to Confirmation of that medication by behaviour support teacher. Such practice is discouraged except when the physician, in their clinical judgment, deems that a medical need exists for a medication without regard to previous use.
--- NOTE | 2025-07-21 15:08 | PROVIDER PROGRESS NOTE ---
Progress Note Progress Note Progress Note: General Surgery Brief Procedure Note (see "Provation" for details) Preop Diagnosis: Suspect UGI source for melena Postop Diagnosis: Esophageal ulcer at 42 cm, not actively bleeding, mild chronic gastritis; multiple 3 mm mucosal polyps greater curvature; normal duode num Procedure: EGD with Biopsy of the distal esophagus and gastric mucosal polypectomy x 2 Recommendation: 1) Mylanta 30 ml PO Q6H 2) PPI 3) Avoid gastric ETOH, NSAIDs 4) Monitor serial H&H Anthony Lobato MD, FACS General Surgery Service
--- NOTE | 2025-07-21 16:40 | ANESTHESIA POST OP EVALUATION ---
Anesthesia Post Eval Post Anesthesia Eval Vitals: Last Vital Signs Temp 36.5 C 07/21/25 13:00 Pulse 85 07/21/25 13:00 Resp 12 07/21/25 13:00 BP 98/69 07/21/25 13:00 Pulse Ox 95 07/21/25 13:00 CV Function Including HR & BP: Stable Pain Control: Satisfactory Nausea & Vomiting: Negative Mental Status: Baseline Respiratory Status: Airway Patent Hydration Status: Satisfactory Anesthesia Complications: None
[2025-07-21] MEDS: MAG HYDROX/AL HYDROX/SIMETH 30 ML UDC PO SCH (18:39)
--- NOTE | 2025-07-22 07:38 | PROVIDER PROGRESS NOTE ---
Progress Note Progress Note Progress Note: General Surgery Progress Note Calvin has remained stable after his EGD. He should be maintained on a PPI for 6-8 weeks and Mylanta 30 ml Q6 hours for the next 24 hours. He should avoid NSAIDs and efforts should be made to have him stop or at least reduce his ETOH consumption. Re-evaluation of the distal esophagus with EGD in 4-6 weeks should be arranged through our surgery clinic to make certain the esophageal ulcer heals. The esophageal biopsy results will be reviewed when they become available in 7-10 days. The General Surgery Service will sign off today. Please do not hesitate to contact us if you have further questions or concerns or if you wish to have us continue to follow this patient with you. Anthony Lobato MD, FACS General Surgery Service
[2025-07-22 08:17] LABS: HCT - HEMATOCRIT 27.7 % (42.0-52.0); HGB - HEMOGLOBIN 9.3 g/dL (14.0-18.0); MEAN PLATELET VOLUME 9.1 fL (7.4-11.4); PLT - PLATELET COUNT 121.0 10^3/uL (130-450); RED CELL DISTRIBUTION WIDTH 17.7 % (12.0-15.0)
[2025-07-22 08:32] LABS: BUN - BLOOD UREA NITROGEN 31.0 mg/dL (6-20); CARBON DIOXIDE - CO2 24.0 mmol/L (21-32); CREATININE 1.0 mg/dL (0.6-1.3); GFR - MDRD 71.0 (>89)
--- NOTE | 2025-07-22 10:03 | Discharge Summary ---
Discharge Summary ALLERGIES Allergies Allergy/AdvReac Type Severity Reaction Status Date / Time No Known Drug Allergies Allergy Verified 07/20/25 21:14 MEDICATIONS Ambulatory Orders Medication Instructions Recorded Confirmed No Known Home Medications 07/21/2506/07 PHYSICAL EXAM AT DISCHARGE Vital Signs: Vital Signs x48h Temp Pulse Resp BP Pulse Ox 07/22/25 04:54 98.2 F 70 20 99/61 95 LABS 07/22/25 08:09 07/22/25 08:09 Discharge Plan Discharge Condition: Stable Prescriptions: No Action No Known Home Medications Print Language: Vietnamese Patient Instructions: Surg Dc Stand Alone Forms: PCP List Follow-up Care: Andrew Soler PA [Primary Care Provider, Personal Development Educator] Vitals documented within 30 minutes of discharge?: Yes
[2025-07-22] MEDS: PANTOPRAZOLE 40 MG TABLET PO SCH (10:04)
--- NOTE | 2025-07-22 11:04 | Discharge Summary ---
"Discharge Summary Admit Date: 07/21/25 Discharge Date: 07/22/25 Discharging Provider: Rigoberto Torres MD Primary Care Provider: BEL Álvarez Code Status: Do Not Attempt Resuscitation Discharge Facility Name: Home, with and palliative care services DIAGNOSES Discharge Diagnoses with Status of Each Condition: Acute upper GIB, stable and Acute blood loss anemia, stable Patient underwent EGD 07/21 which was notable for esophageal ulcer and mild chronic gastritis, no active bleeding, normal duodenum. Hgb decrease from 13.4 on admission to 9.3 upon discharge 07/22. He is no longer having bloody vomitus and has not had bloody stools since presentation in the ED. His vital signs are stable, he is asymptomatic. - Appreciate general surgery recs: o Discharge on Pantoprazole 40mg BID for 6-8 weeks, Mylanta 30ml q6h for next 24 hours o Repeat EGD in 4-6 weeks to ensure ulcer healing - Patient is instructed to re-present for medical evaluation should he experience signs/symptoms of acute bleeding (dizziness, weakness, confusion, worsening bloody emesis/stool, palpitations, severe abdominal pain) - Avoid NSAIDs Alcohol use disorder, chronic, stable - Patient has been counselled to abstain from alcohol to prevent further episodes of GI bleeding Dementia, chronic, stable He is at his baseline cognitive status upon discharge. HPI History of Present Illness: Calvin Leon is a 84-year-old male with past medical history of ETOH use, dementia, hemochromatosis and gout who presents with hematemesis and melena, found to have non-actively bleeding esophageal ulcer and chronic gastritis on EGD. Mr. Leon presented after his caregiver noticed a few days of dark, coffee ground emesis and black stools, for which he had 3-4 episodes total of each, and profound weakness. CONSULTS | PROCEDURES Consultations: General Surgery Procedures: CT ABDOMEN/PELVIS 07/20/25 PROCEDURE: CT Abdomen/Pelvis W INDICATIONS: n/v/GIB CONTRAST: omni 300, 100ml TECHNIQUE: After the administration of intravenous contrast, a CT scan of the abdomen and pelvis was performed. Images were recorded and evaluated at appropriate window settings. Reformats: coronal and sagittal. For radiation dose reduction, the following was used: automated exposure control, adjustment of mA and/or kV according to patient size. COMPARISON: None. FINDINGS: Image quality: Diagnostic. Lower chest: Surgical bronchiectasis and linear scarring in the lung bases, likely sequela of prior infection/inflammation. Liver: Hepatic steatosis. No focal mass. Gallbladder: Layering stones/sludge. No wall thickening. No pericholecystic edema. Biliary tree: No intrahepatic or extrahepatic dilation, accounting for age. Spleen: No splenomegaly. Pancreas: No pancreatic ductal dilation. Adrenals: No adrenal nodule. Kidneys and ureters: No hydronephrosis. No renal cystic lesion which requires follow up. No solid mass. Stomach, bowel and peritoneum: No gastric or small bowel dilation. No abnormal wall thickening. No pathologic free fluid. Diverticulosis without evidence of diverticulitis. Nonvisualized appendix. No pericecal inflammation. Lymph nodes: No central or retroperitoneal adenopathy. Vessels: No infrarenal aortic aneurysm. Patent portal vein. PELVIS Reproductive organs: Unremarkable. Bladder: Circumferential bladder wall thickening which may be secondary to underdistention. Pelvic lymph nodes: No pelvic adenopathy by size criteria. Bones: No aggressive osseous abnormality. Other: No significant ventral or inguinal hernia. IMPRESSION: 1. Circumferential bladder wall thickening which may be secondary to underdistention. Correlate with symptoms and/or urinalysis to exclude cystitis. 2. Diverticulosis without evidence of diverticulitis. 3. Cholelithiasis without acute cholecystitis. ENDOSCOPY 07/21/25 Esophageal ulcer at 42 cm, not actively bleeding, mild chronic gastritis; multiple 3 mm mucosal polyps greater curvature; normal duodenum HOSPITAL COURSE Hospital Course: In the ED, patient had ~100cc of melanotic stool. Workup revealed mild leukocytosis WBC 15.2, Hgb 13.4, and Cr 1.3. His LFTs and lipase were normal, but with a bilirubin of 1.9. A Hemoccult test was performed on the melanotic stool which returned positive. His CT abdomen/pelvis was notable for diverticulosis and cholelithiasis without acute process. He was admitted to the inpatient Hospitalist service for possible EGD and monitoring of acute blood loss anemia. On the day of admission he was treated with Pantoprazole IV continuous infusion, maintenance NS IV, made NPO in anticipation for EGD, and his CBC was monitored q6h. He was transitioned to Pantoprazole 40mg IVP BID, then underwent EGD the afternoon of 07/[address] Lobato, who found esophageal ulcer and chronic gastritis without acute bleeding. He did not have any further episodes of hematemesis or melena while inpatient. His leukocytosis has normalized WBC 5.8, and his H&H is stable 9.3, 27.7. He is stable for discharge given the following: H&H stable, VSS, no longer experiencing hematemesis and melena, no acute bleeding on EGD, and denies symptoms of acute bleeding. He is discharged with Pantoprazole 40mg PO BID for 6-8 weeks, Mylanta 30ml PO q6h for 24 hours, and instructions to follow-up with his primary care provider for post- hospitalization assessment. He will also need follow-up with general surgery for repeat EGD in 4-6 weeks to ensure esophageal ulcer is healing as expected. ALLERGIES Allergies Allergy/AdvReac Type Severity Reaction Status Date / Time No Known Drug Allergies Allergy Verified 07/20/25 21:14 MEDICATIONS Ambulatory Orders Medication Instructions Recorded Confirmed aluminum-mag hydroxide-simethicone 30 ml PO Q4HR 3 day s #540 mL 07/22/25 200 mg-200 mg-20 mg/5 mL oral susp (Mag-Al Plus) pantoprazole 40 mg tablet,delayed 40 mg PO BID 6 weeks #84 tabs 07/22/25 release PHYSICAL EXAM AT DISCHARGE Vital Signs: Vital Signs x48h Temp Pulse Resp BP Pulse Ox O2 Flow Rate 07/22/25 12:45 36.4 C L 71 16 110/69 97 0 07/22/25 10:33 36.7 C 67 20 114/68 96 General Appearance: positive No acute distress and Alert Eyes Bilateral: positive Normal inspection and PERRL ENT: positive ENT inspection nml and Pharynx nml Neck: positive Nml inspection, Thyroid nml, No JVD and Trachea midline Respiratory: positive No respiratory distress and Breath sounds nml; negative Wheezes, Rales or Rhonchi Cardiovascular: positive Regular rate & rhythm and No murmur Peripheral Pulses: positive 2+ Abdomen: positive Non-tender, Nml bowel sounds and No distention Skin: positive Warm and Dry Extremities: positive Non-tender, Nml appearance and No pedal edema Neurologic/Psychiatric: positive Sensation nml and Disoriented to time; negative Mood/affect nml (Flat affect) LABS 07/22/25 08:09 07/22/25 08:09 DIAGNOSTIC IMAGING Diagnostic Imaging Results: Final report reviewed FOLLOW UP Follow Up: Outpatient follow-up with general surgery for repeat EGD in 4-6 weeks. PCP follow-up for post-hospitalization assessment and labwork. TIME SPENT Time Spent in Discharge (Minutes): 45 Discharge Plan Discharge Patient Disposition: 01 Home, Self Care Condition: Stable Prescriptions: New alum-mag hydroxide-simeth [Mag-Al Plus] 200-200-20 mg/5 mL Suspension 30 ml PO Q4HR 3 Days Qty: 540 0RF pantoprazole 40 mg Tablet,Delayed Release (Dr/Ec) 40 mg PO BID 42 Days Qty: 84 0RF Diet: Soft Interventions: Belongings Inventory Last Done: 07/22/25 10:00 Discharge Last Done: 07/22/25 13:04 Discharge Checklist - Nursing Last Done: 07/22/25 13:04 Discharge Vital Signs (30 Minutes) Last Done: 07/22/25 12:45 Health Concerns: You came in because you were throwing up blood, and you had blood in your stool. Your blood levels are normally as high as 15-16 because of your hemochromatosis, and they dropped to 9-10 while you have been here. You have not required a blood transfusion. We completed a procedure called an EGD which takes a camera and looks at your upper GI tract including your esophagus, first part of your small bowel, as well as your stomach. This showed inflammation of your esophagus, as well as a ulcer (with evidence that the ulcer was recently bleeding). By the time it was seen, this had clotted off. This ulcer, as well as this inflammation was likely due to your alcohol use which can cause increased inflammation in this area. As we talked about, I would like you to abstain from any alcohol use moving forward (not even the one glass a day). Please also abstain from using the class of medications called NSAIDs - this includes Motrin, Aleve, naproxen, etc. Additionally, please follow-up with the general surgery clinic. At this time, the biopsy results of the ulcer will be available. You should also have a repeat scope done to ensure that the ulcer is healing appropriately. I am sending you home with two medications. The first one is Mylanta, which you can take just for the next 2 days. The second one is Protonix. Please continue to take this daily, 40 mg twice a day. Please continue to follow-up with your primary care provider as well as your palliative care provider. Please increase your activity slowly, until you are feeling better. Please advance your diet slowly as well from full liquids today, to soft, low fiber foods tomorrow. If you have any repeated episodes of vomiting blood, bright red blood per rectum, feelings of lightheadedness, dizziness, etc., please feel free to return to the emergency room. We are glad you are feeling better, thank you for allowing us to take care of you. Print Language: Fijian Patient Instructions: Surg Dc Stand Alone Forms: PCP List Follow-up Care: Anthony Lobato MD [Provider Admit Priv/Credential, Surgery, General] - 2 Weeks Andrew Soler PA [Primary Care Provider, Renewal Specialist] Vitals documented within 30 minutes of discharge?: Yes"
[2025-07-22 13:06] VITALS: BP 110/69; TEMP 97.5; O2SAT 97
== END 2025-07-22 12:50 | disposition home or self-care (01) ==
LOC: MS2 20:58 → ED 20:58 → MS2 07-21 02:45
PROVIDERS: ADMIT Family Medicine; ATTEND Family Medicine